=== PATIENT | female | born 1955 | race Caucasian/White ===

== ENCOUNTER 2018-12-15 19:10 | Emergency (ER) | payer OTHER ==
[2018-12-15 19:17] VITALS: BP 119/71; PULSE 75; RESP 16; TEMP 97.8; O2SAT 97
[2018-12-15 19:18] VITALS: BMI 26.9
--- NOTE | 2018-12-15 19:29 | ED PDOC ---
HPI: General Adult Time Seen by Provider: 12/15/18 19:20 Chief Complaint (Nursing): Medical Clearance Chief Complaint (Provider): Pertussis Exposure History Per: Patient History/Exam Limitations: no limitations Additional Complaint(s): 63 year old female with a past medical history of type 1 diabetes presents to the ED for evaluation status post pertussis exposure. Patient is a pediatric nurse at [employer] and on 12/02/2018 cared for a patient who tested positive for pertussis. Patient denies any symptoms/complaints. Patient was sent by [facility]. Otherwise: (-) fevers, (-) cough. Tetanus is up to date. PMD: Chase Arteaga MD Past Medical History Reviewed: Historical Data, Nursing Documentation, Vital Signs Vital Signs: Last Vital Signs Temp 97.8 F 12/15/18 19:16 Pulse 75 12/15/18 19:16 Resp 16 12/15/18 19:16 BP 119/71 12/15/18 19:16 Pulse Ox 97 12/15/18 19:16 [facility] Report Viewed: Yes - Medical History PMH: Diabetes (Insulin pump) - Surgical History Other surgeries: hemorrhoidectomy - Family History Family History: States: No Known Family Hx - Immunization History Hx Tetanus Toxoid Vaccination: Yes - Home Medications Home Medications: Ambulatory Orders Medication Instructions Recorded Insulin Pump/Infus. Set/Meter 10/11/16 [Accu-Chek Combo System] Azithromycin [Zithromax] 250 mg PO DAILY #6 tab 12/15/18 - Allergies Allergies/Adverse Reactions: Allergies Allergy/AdvReac Type Severity Reaction Status Date / Time NSAIDS (Non-Steroidal Allergy ITCHING Verified 12/15/18 19:18 Anti-Inflamma Review of Systems ROS Statement: Except As Marked, All Systems Reviewed And Found Negative Constitutional: Negative for: Fever Respiratory: Negative for: Cough Physical Exam - Reviewed Nursing Documentation Reviewed: Yes Vital Signs Reviewed: Yes - Physical Exam Comments: GENERAL APPEARANCE: Patient is awake, alert, oriented x 3, resting comfortably, in no acute distress. SKIN: Warm, dry; (-) cyanosis NECK: Supple, FROM HEART AND CARDIOVASCULAR: (-) irregularity CHEST AND RESPIRATORY: Lungs clear to auscultation bilaterally (-) rales, (-) rhonchi, (-) wheezes; breath sounds equal. Respirations even and nonlabored, speaking in full sentences. NEURO AND PSYCH: Mental status as above. Gait: steady. Speech: clear. (-) facial asymmetry - ECG O2 Sat by Pulse Oximetry: 97 (RA) Pulse Ox Interpretation: Normal Medical Decision Making Medical Decision Makin:30 Clinical impression: 63 year old female with pertussis exposure Given patient is asymptomatic, patient is stable for discharge with Rx for Azithromycin. Vitals stable. Diagnostic results d/w the patient in great detail. Diagnosis of pertussis exposure d/w the patient. Based on history, exam and diagnostic results, plan will be for outpatient follow up with PMD. Patient instructed to follow-up with pmd / referral provided / the clinic in 1- 2 days without fail. Advised to take medication as prescribed. Return to the emergency room at any time for any new or worsening symptoms. Patient states she fully agrees with and understands discharge instructions. States that she agrees with the plan and disposition. Verbalized and repeated discharge instructions and plan. I have given the patient opportunity to ask any additional questions. ScribeAttestation: Documented byShantel Slater, acting as a scribe for Shantel Rosales Provider ScribeAttestation: All medical record entries made by the Scribe were at my direction and personally dictated by me. I have reviewed the chart and agree that the record accurately reflects my personal performance of the history, physical exam, medical decision making, and the department course for this patient. I have also personally directed, reviewed, and agree with the discharge instructions and disposition. Disposition - Clinical Impression Clinical Impression: Pertussis exposure - Patient ED Disposition Is Patient to be Admitted: No Counseled Patient/Family Regarding: Studies Performed, Diagnosis, Need For Followup, Rx Given - Disposition Referrals: Chase Arteaga MD [Family Provider] - Disposition: Routine/Home Disposition Time: 19:30 Condition: STABLE Additional Instructions: The emergency medical care you received today was directed at your acute symptoms. If you were prescribed any medication, please fill it and take as directed. It may take several days for your symptoms to resolve. Return to the Emergency Department if your symptoms worsen, do not improve, or if you have any other problems. Please contact your doctor in 2 days for re-evaluation and follow up / or call one of the physicians/clinics you have been referred to that are listed on the Patient Visit Information form that is included in your discharge packet. Bring any paperwork you were given at discharge with you along with any medications you are taking to your follow up visit. Our treatment cannot replace ongoing medical care by a primary care provider (PCP) outside of the emergency department. Prescriptions: Azithromycin [Zithromax] 250 mg PO DAILY #6 tab Instructions: Pertussis, Adult, Pertussis, Adult (DC), General (DC) Forms: [facility] (Estonian) Print Language: SWEDISH - POA Present On Arrival: None
== END 2018-12-15 19:49 | disposition home or self-care (01) ==
LOC: H.ER 19:10
DX: E10.9 Type 1 diabetes mellitus without complications (principal); Z20.818 Contact with and (suspected) exposure to other bacterial communicable diseases; Z79.4 Long term (current) use of insulin; Z88.6 Allergy status to analgesic agent